=== PATIENT | female | born 1940 ===

== ENCOUNTER 2021-07-04 16:11 | Emergency (ER) | payer MEDICARE ==
[~2021-07-04] VITALS: Ht 167 cm; Wt 59.0 kg
--- NOTE | 2021-07-04 16:24 | ED General ---
General Chief Complaint: COVID19 Suspect/Confirmed Stated Complaint: COVID + Source of Information: Patient Exam Limitations: No Limitations (DEDRICK MÁRQUEZ APRN) History of Present Illness Date Seen by Provider: Jul 04, 2021 Time Seen by Provider: 16:20 Initial Comments To ER by [facility] from her home where she resides with her boyfriend with reports of general weakness secondary to Covid. She became symptomatic about 7 days ago and tested positive 2 days ago at [facility]. She does not wear oxygen at home on a regular basis. Family reported that her oxygen was at about 88% on her home SPO2 monitor. Patient states that she just feels tired but is otherwise able to take care of herself. She has no fevers. She has a chronic cough and continues to smoke. She is not vaccinated against Covid. Timing/Duration: 1 Week Severity: Moderate Associated Systoms: Malaise, Weakness (DEDRICK MÁRQUEZ APRN) Allergies and Home Medications Allergies Coded Allergies: No Known Drug Allergies (Unverified , 07/04/21) Patient Home Medication List Home Medication List Reviewed: Yes (DEDRICK MÁRQUEZ APRN) Dexamethasone (Decadron) 6 Mg Tablet, 6 MG PO DAILY Prescribed by: DEDRICK MÁRQUEZ on 07/04/21 1804 Review of Systems Review of Systems Constitutional: see HPI, malaise, weakness EENTM: see HPI Respiratory: no symptoms reported Cardiovascular: no symptoms reported Genitourinary: no symptoms reported Musculoskeletal: no symptoms reported Skin: no symptoms reported Psychiatric/Neurological: No Symptoms Reported Hematologic/Lymphatic: No Symptoms Reported Immunological/Allergic: no symptoms reported (Pain) (DEDRICK MÁRQUEZ APRN) Physical Exam Vital Signs Vital Signs - First Documented 07/04/21 16:15 Temp 38.0 Pulse 85 Resp 20 B/P (MAP) 153/84 (107) Pulse Ox 93 O2 Delivery Room Air (BETSY SILVA MD) Vital Signs Capillary Refill : (DEDRICK MÁRQUEZ APRN) Height, Weight, BMI Height: '" Weight: lbs. oz. kg; BMI Method: General Appearance: No Apparent Distress, WD/WN, Thin, Other (Oxygen is 92 to 94% on room air. She is alert and oriented very talkative. Does have rhonchi noted.) Eyes: Bilateral Eye Normal Inspection, Bilateral Eye PERRL, Bilateral Eye EOMI HEENT: PERRL/EOMI, TMs Normal Neck: Full Range of Motion, Normal Inspection Respiratory: No Accessory Muscle Use, No Respiratory Distress Cardiovascular: Regular Rate, Rhythm, Normal Peripheral Pulses Gastrointestinal: Normal Bowel Sounds, Non Tender, Soft Extremity: Normal Capillary Refill, Normal Inspection Neurologic/Psychiatric: Alert, Oriented x3 Skin: Normal Color, Warm/Dry (DEDRICK MÁRQUEZ APRN) Progress/Results/Core Measures Suspected Sepsis SIRS Temperature: Pulse: Respiratory Rate: Laboratory Tests 07/04/21 16:15: White Blood Count 3.8L Blood Pressure / Mean: Laboratory Tests 07/04/21 16:15: Creatinine 1.20, INR Comment 1.0, Platelet Count 122L, Total Bilirubin 0.4 (DEDRICK MÁRQUEZ APRN) Results/Orders Lab Results Laboratory Tests Test 07/04/21 16:15 Range/Units White Blood Count 3.8 L 4.3-11.0 10^3/uL Red Blood Count 3.64 L 3.80-5.11 10^6/uL Hemoglobin 12.0 11.5-16.0 g/dL Hematocrit 35 35-52 % Mean Corpuscular Volume 95 80-99 fL Mean Corpuscular Hemoglobin 33 25-34 pg Mean Corpuscular Hemoglobin Concent 35 32-36 g/dL Red Cell Distribution Width 12.2 10.0-14.5 % Platelet Count 122 L 130-400 10^3/uL Mean Platelet Volume 10.0 9.0-12.2 fL Immature Granulocyte % (Auto) 0 % Neutrophils (%) (Auto) 73 42-75 % Lymphocytes (%) (Auto) 18 12-44 % Monocytes (%) (Auto) 9 0-12 % Eosinophils (%) (Auto) 0 0-10 % Basophils (%) (Auto) 0 0-10 % Neutrophils # (Auto) 2.7 1.8-7.8 X 10^3 Lymphocytes # (Auto) 0.7 L 1.0-4.0 X 10^3 Monocytes # (Auto) 0.4 0.0-1.0 X 10^3 Eosinophils # (Auto) 0.0 0.0-0.3 10^3/uL Basophils # (Auto) 0.0 0.0-0.1 10^3/uL Immature Granulocyte # (Auto) 0.0 0.0-0.1 10^3/uL Prothrombin Time 13.4 12.2-14.7 SEC INR Comment 1.0 0.8-1.4 D-Dimer 2.48 H 0.00-0.49 UG/ML Blood Gas Puncture Site NA Blood Gas Patient Temperature 100.4 Arterial Blood pH 7.43 7.37-7.43 Arterial Blood Partial Pressure CO2 37 35-45 MMHG Arterial Blood Partial Pressure O2 71 L 79-93 MMHG Arterial Blood HCO3 24 23-27 MMOL/L Arterial Blood Total CO2 24.8 21.0-31.0 MMOL/L Arterial Blood Oxygen Saturation 94 94-100 % Arterial Blood Base Excess 0.2 -2.5-2.5 MMOL/L Basim Test NA Blood Gas Ventilator Setting NO Blood Gas Inspired Oxygen NA Sodium Level 132 L 135-145 MMOL/L Potassium Level 4.0 3.6-5.0 MMOL/L Chloride Level 97 L 98-107 MMOL/L Carbon Dioxide Level 25 21-32 MMOL/L Anion Gap 10 5-14 MMOL/L Blood Urea Nitrogen 32 H 7-18 MG/DL Creatinine 1.20 0.60-1.30 MG/DL Estimat Glomerular Filtration Rate 43 BUN/Creatinine Ratio 27 Glucose Level 108 H 70-105 MG/DL Calcium Level 9.1 8.5-10.1 MG/DL Corrected Calcium 9.3 8.5-10.1 MG/DL Total Bilirubin 0.4 0.1-1.0 MG/DL Aspartate Amino Transf (AST/SGOT) 38 H 5-34 U/L Alanine Aminotransferase (ALT/SGPT) 19 0-55 U/L Alkaline Phosphatase 51 40-136 U/L C-Reactive Protein High Sensitivity 2.32 H 0.00-0.50 MG/DL B-Type Natriuretic Peptide 77.5 <100.0 PG/ML Total Protein 7.1 6.4-8.2 GM/DL Albumin 3.7 3.2-4.5 GM/DL Procalcitonin 0.09 <0.10 NG/ML (BETSY SILVA MD) Vital Signs/I&O 07/04/21 07/04/21 07/04/21 16:15 16:31 19:10 Temp 38.0 37.4 Pulse 85 90 Resp 20 20 B/P (MAP) 153/84 (107) 149/90 Pulse Ox 93 94 O2 Delivery Room Air Room Air Room Air (BETSY SILVA MD) Vital Signs/I&O Capillary Refill : (DEDRICK MÁRQUEZ APRN) Departure Communication (Admissions) NAME: MARIANGEL CARR [facility] REC#: [id number] PT STATUS: REG ER : 1940 PHYSICIAN: DEDRICK MÁRQUEZ APRN ADMIT DATE: 07/04/21/ER Draft Date of Exam:07/04/21 CT ANGIO CHEST W PROCEDURE: CT angiography of the chest with contrast. TECHNIQUE: Multiple contiguous axial images were obtained through the chest after uneventful bolus administration of intravenous contrast. 3D reconstructed CTA MIP acquisitions were also performed. Auto Exposure Controls were utilized during the CT exam to meet ALARA standards for radiation dose reduction. INDICATION: COVID positive, elevated D-dimer COMPARISON: 07/04/2021 FINDINGS: The pulmonary arteries are diagnostic to the proximal segmental level. There is some motion artifact present. No filling defects are seen to indicate a pulmonary embolus. There is mild cardiomegaly. There is no evidence of right heart strain. The ascending aorta is 4.5 cm in diameter. There is mild atherosclerosis of the aorta. No dissection is seen. There is a small hiatal hernia. There are few mildly prominent mediastinal lymph nodes, which may be reactive. No axillary adenopathy is seen. There are calcified mediastinal lymph nodes from old granulomatous disease. There are calcified granulomas bilaterally. Scattered groundglass opacities are seen in the lower lobes and left upper lobe. No pleural effusion or pneumothorax is seen. No central endobronchial lesions are identified. No acute osseous abnormality is seen. Imaged portions of the upper abdomen demonstrate no acute abnormality. IMPRESSION: 1. No pulmonary embolus. 2. Bilateral groundglass opacities, consistent with infection. 3. Aneurysmal dilatation of the ascending aorta. 4. Small hiatal hernia. Dictated on workstation # [id number] Dict: 07/04/211752 Trans: 07/04/211757 CVB [id number] Interpreted by: AMINA MARIE MD Electronically signed by: Family Conversation NAME: MARIANGEL CARR [facility] REC#: [id number] PT STATUS: REG ER : 1940 PHYSICIAN: DEDRICK MÁRQUEZ APRN ADMIT DATE: 07/04/21/ER Draft Date of Exam:07/04/21 CHEST 1 VIEW, AP/PA ONLY EXAMINATION: Chest 1 view HISTORY: Cough, COVID 19 COMPARISON: None available. FINDINGS: The lungs are clear without edema or pneumonia. No pleural effusion or pneumothorax. Heart size is normal. IMPRESSION: 1. Clear lungs. Dictated on workstation # [id number] Dict: 07/04/21 164 Trans: 07/04/211646 CVB [id number] Interpreted by: MONTSE LIMA MD Electronically signed by: [id number]-Her portable SPO2 monitor that she has with her reads 92% while hours on the bedside monitor reads 95%. There is a discord between the 2. I did offer her a monoclonal antibody infusion but she tells me she has not interested in receiving this. 171-spoke with the patient about her elevated D-dimer. This may simply be related to Covid though it may also be related to pulmonary embolism given her tachycardia and oxygen of 91 to 94% on room air. I discussed with her the next step being CT angiogram to evaluate for pulmonary embolism. Discussed with her that the IV contrast with this scan may worsen her already decreased kidney function. However the alternative of not getting a scan includes risk of missed pulmonary embolism. We do not have any beds in the hospital and all of the other hospitals in the area are on diversion. Admitting her for a scheduled VQ scan is not feasible. Given that she lives in [facility] having her come back here for an outpatient VQ scan is not reasonable either. I recommended her to proceed with the scan at the risk of potentially worsening kidney function though we will give IV fluids afterwards to help reduce that risk. She is agreeable with proceeding with the scan. 180-given her rhonchi with productive cough and smoking history she likely has COPD. I will give her some Decadron. Her oxygen has remained upwards 91 to 94% on room air during her entire ER stay. I will not send her home on oxygen. She is not interested in a monoclonal antibody infusion. (DEDRICK MÁRQUEZ APRN) Impression Primary Impression: COVID-19 Disposition: 01 HOME, SELF-CARE Condition: Stable Departure-Patient Inst. Decision time for Depature: 17:15 (DEDRICK MÁRQUEZ APRN) Referrals: NO,LOCAL PHYSICIAN (PCP/Family) Primary Care Physician Patient Instructions: COVID-19 (DC) Add. Discharge Instructions: #1. Take the steroids as directed. Continue to use your breathing machine at home. All discharge instructions reviewed with patient and/or family. Voiced understanding. Scripts Dexamethasone (Decadron) 6 Mg Tablet 6 MG PO DAILY, #5 TAB Prov: DEDRICK MÁRQUEZ APRN 07/04/21 ATTENDING PHYSICIAN NOTE: I was physically present as attending physician in the emergency department during the care of this patient, but I was not directly involved in the decision making or delivery of care for this patient. (BETSY SILVA MD) DEDRICK MÁRQUEZ APRN Jul 04, 2021 16:24 BETSY SILVA MD Jul 05, 2021 07:48
[2021-07-04 16:28] LABS: ABG BASE EXCESS 0.2 MMOL/L (-2.5-2.5); ABG OXYGEN SATURATION 94 % (94-100); ABG PCO2 37 MMHG (35-45); ABG PH 7.43 (7.37-7.43); ABG PO2 71 MMHG (79-93); ABG TCO2 24.8 MMOL/L (21.0-31.0)
[2021-07-04 16:29] LABS: BASOPHILS % (AUTO) 0 % (0-10); EOSINOPHILS % (AUTO) 0 % (0-10); HEMATOCRIT 35 % (35-52); LYMPHOCYTES # (AUTO) 0.7 X 10^3 (1.0-4.0); LYMPHOCYTES % (AUTO) 18 % (12-44); MEAN CORPUSCULAR HEMOGLOBIN 33 pg (25-34); MEAN CORPUSCULAR HGB CONC 35 g/dL (32-36); MEAN CORPUSCULAR VOLUME 95 fL (80-99); MONOCYTES # (AUTO) 0.4 X 10^3 (0.0-1.0); MONOCYTES % (AUTO) 9 % (0-12); NEUTROPHILS # (AUTO) 2.7 X 10^3 (1.8-7.8); NEUTROPHILS % (AUTO) 73 % (42-75); PLATELET COUNT 122 10^3/uL (130-400); WHITE BLOOD COUNT 3.8 10^3/uL (4.3-11.0)
[2021-07-04 16:40] LABS: ALBUMIN 3.7 GM/DL (3.2-4.5)
[2021-07-04 16:41] LABS: CALCIUM 9.1 MG/DL (8.5-10.1); PATIENT TEMP 100.4; VENTILATOR NO
[2021-07-04 16:42] LABS: TOTAL PROTEIN 7.1 GM/DL (6.4-8.2)
[2021-07-04 16:44] LABS: BILIRUBIN,TOTAL 0.4 MG/DL (0.1-1.0)
[2021-07-04 16:46] LABS: CREATININE SERUM 1.2 MG/DL (0.60-1.30)
--- NOTE | 2021-07-04 16:47 | Diagnostic Imaging Report ---
EXAMINATION: Chest 1 view HISTORY: Cough, COVID 19 COMPARISON: None available. FINDINGS: The lungs are clear without edema or pneumonia. No pleural effusion or pneumothorax. Heart size is normal. IMPRESSION: 1. Clear lungs. Dictated by: Dictated on workstation # [id number]
[2021-07-04 16:58] LABS: FIBRIN DEGRADATION PRODUCTS 2.48 UG/ML (0.00-0.49); PROTHROMBIN TIME PATIENT 13.4 SEC (12.2-14.7)
[2021-07-04] MEDS ORDERED: NS 100 ML (IVPB) BAG IV ONE (17:30)
[2021-07-04] MEDS ORDERED: HOLD METFORMIN - RECEIVED CONTRAST 20 ML VIAL IV SCH (17:30)
[2021-07-04] MEDS ORDERED: IOHEXOL 350 MG/ML 100 ML (OMNIPAQUE 350) VIAL IV ONE (17:30)
--- NOTE | 2021-07-04 17:58 | Diagnostic Imaging Report ---
PROCEDURE: CT angiography of the chest with contrast. TECHNIQUE: Multiple contiguous axial images were obtained through the chest after uneventful bolus administration of intravenous contrast. 3D reconstructed CTA MIP acquisitions were also performed. Auto Exposure Controls were utilized during the CT exam to meet ALARA standards for radiation dose reduction. INDICATION: COVID positive, elevated D-dimer COMPARISON: 07/04/2021 FINDINGS: The pulmonary arteries are diagnostic to the proximal segmental level. There is some motion artifact present. No filling defects are seen to indicate a pulmonary embolus. There is mild cardiomegaly. There is no evidence of right heart strain. The ascending aorta is 4.5 cm in diameter. There is mild atherosclerosis of the aorta. No dissection is seen. There is a small hiatal hernia. There are few mildly prominent mediastinal lymph nodes, which may be reactive. No axillary adenopathy is seen. There are calcified mediastinal lymph nodes from old granulomatous disease. There are calcified granulomas bilaterally. Scattered groundglass opacities are seen in the lower lobes and left upper lobe. No pleural effusion or pneumothorax is seen. No central endobronchial lesions are identified. No acute osseous abnormality is seen. Imaged portions of the upper abdomen demonstrate no acute abnormality. IMPRESSION: 1. No pulmonary embolus. 2. Bilateral groundglass opacities, consistent with infection. 3. Aneurysmal dilatation of the ascending aorta. 4. Small hiatal hernia. Dictated by: Dictated on workstation # [id number]
[2021-07-04] MEDS ORDERED: LACTATED RINGERS 1,000 ML IV SCH (18:00)
[2021-07-04] MEDS ORDERED: DEXA6TAB6 PO (18:04)
[2021-07-04] MEDS ORDERED: dexAMETHasone 6 MG TAB (DECADRON) PO SCH (18:15)
[2021-07-04 19:10] VITALS: BP 149/90
== END 2021-07-04 19:15 | disposition home or self-care (01) ==
LOC: ER 16:15
DX: U07.1 COVID-19 (principal); F17.210 Nicotine dependence, cigarettes, uncomplicated
CPT/HCPCS: 36415; 71045; 71275; 80053; 82805; 83880; 84145; 85025; 85379; 85610; 86141